=== PATIENT | female | born 1995 | race Caucasian/White ===

== ENCOUNTER 2017-08-18 23:05 | Emergency (ER) | END 2017-08-19 02:18 | disposition home or self-care (01) ==

== ENCOUNTER 2018-07-26 19:32 | Inpatient (IN) | payer MEDICAID ==
[~2018-07-26] VITALS: Ht 160 cm; Wt 69.4 kg
[~2018-07-26 19:32] MED LIST: BENZ30CR2 TP; NITR-58 PO
[2018-07-26 20:20] VITALS: BP 108/62; PULSE 56; RESP 20
[2018-07-26] MEDS ORDERED: PREN1TAB13 PO (20:38)
[2018-07-26 20:59] VITALS: Ht 160 cm; Wt 69.4 kg
[2018-07-26] MEDS ORDERED: AMPICILLIN 2 GM/NS (PMX) 100 ML ONE (21:56)
[2018-07-26] MEDS ORDERED: IBUPROFEN 600 MG TAB PO PRN (22:00)
[2018-07-26] MEDS ORDERED: OXYTOCIN 30 UNITS/LR 500 ML IV SCH ×2 (22:00)
[2018-07-26] MEDS ORDERED: AMPICILLIN 2 GM/NS (PMX) 100 ML IV ONE (22:00)
[2018-07-26] MEDS ORDERED: LIDOCAINE 1% (MPF) 30 ML INJ INJ PRN (22:00)
[2018-07-26] MEDS ORDERED: BUTORPHANOL 2 MG INJ IV PRN (22:00)
[2018-07-26] MEDS ORDERED: MISOPROSTOL 200 MCG TAB PR PRN (22:00)
[2018-07-26] MEDS ORDERED: CARBOPROST 250 MCG INJ IM PRN (22:00)
[2018-07-26] MEDS ORDERED: BUTORPHANOL 1 MG INJ IV PRN (22:00)
[2018-07-26] MEDS ORDERED: OXYTOCIN 30 UNITS/LR 500 ML IV PRN (22:00)
[2018-07-26] MEDS ORDERED: METHYLERGONOVINE 0.2 MG INJ IM PRN (22:00)
[2018-07-26] MEDS: LACTATED RINGER'S 1,000 ML IV SCH (22:26)
--- NOTE | 2018-07-26 23:30 | TRIAGE ---
OB Triage Datetime Report Generated by CPN: 07/26/2018 23:30 Datetime: 07/26/2018 23:00 Stage of : OB Triage Labor Evaluation Frequency: 2-4 Monitor Mode: External Duration (sec)2399: 50-100 Pattern: Normal: <= 5 Contractions in 10 Minutes Resting Tone [place]: Relaxed Heart Rate FHR Baseline Rate: 135 Monitor Mode: External US Variability: Moderate 6-25 bpm Accelerations: 15X15 Decelerations: None Category: Category I Datetime: 07/26/2018 22:19 Monitor Mode: External Monitor Mode: External US Datetime: 07/26/2018 22:00 Stage of : OB Triage Labor Evaluation Frequency: 2-4 Monitor Mode: External Duration (sec)2399: 50-100 Pattern: Normal: <= 5 Contractions in 10 Minutes Resting Tone [place]: Relaxed Heart Rate FHR Baseline Rate: 130 Monitor Mode: External US Variability: Moderate 6-25 bpm Accelerations: 15X15 Decelerations: None Category: Category I Datetime: 07/26/2018 21:43 Membrane Status: Intact Datetime: 07/26/2018 21:36 Stage of : OB Triage Vaginal Exam Dilatation (cms): 2.0 Effacement (%): 80 Station: 0 Exam By: Dr. Benedict Datetime: 07/26/2018 21:00 Stage of : OB Triage Labor Evaluation Frequency: 2-5 Monitor Mode: External Duration (sec)2399: 50-100 Pattern: Normal: <= 5 Contractions in 10 Minutes Resting Tone [place]: Relaxed Heart Rate FHR Baseline Rate: 130 Monitor Mode: External US Variability: Moderate 6-25 bpm Accelerations: 15X15 Decelerations: None Category: Category I Datetime: 07/26/2018 20:42 Stage of : OB Triage Datetime: 07/26/2018 20:41 EGA: 35.4 Datetime: 07/26/2018 20:15 Temperature Route: Oral Datetime: 07/26/2018 20:12 Monitor Mode: External Monitor Mode: External US Datetime: 07/26/2018 19:25 Stage of : OB Triage Time of Arrival: 07/26/2018 19:25 Arrived By: Wheelchair Arrived From: Home Chief Complaint: Back pain started 0900 Movement: Present Contractions: Regular Time Contractions Began: 07/26/2018 09:00 Contractions: 2-5 Rupture of Membranes: Denies Vaginal Bleeding: None Vaginal Discharge: Denies Recent Sexual Intercouse: Denies Abdominal Trauma: Not Applicable Patient Complaints: Contractions; Back Pain Time Provider Notified: 07/26/2018 20:42 Provider Notified: Dr. Benedict Initial Plan: EFM, PO Fluid hydration, U/A Maternal Assessment Level of Consciousness: Fully Conscious DTR's/Clonus: DTRs 2+; No Clonus Headache: Denies Blurred Vision: No Respiratory Effort: Unlabored; Regular Rhythm; Equal Expansion Breath Sounds, Left: Clear and Equal Breath Sounds, Right: Clear and Equal Nausea/Vomiting: Denies RUQ Epigastric Pain: Denies Lower Extremities Edema: None Degree: None Upper Extremities Edema: None Degree: None Facial Edema: None Fall Risk Assessment History of Falling: (0) No Secondary Diagnosis: (0) No Ambulatory Aid: (0) Bedrest/Nurse Assist IV Therapy: (0) No Gait: (0) Normal/Bedrest/Immobile Mental Status: (0) Oriented to Own Ability Fall Score: 0 Fall Risk Score Definition: No Risk: No action required
--- NOTE | 2018-07-27 | HP ---
Date/Time of Note Date/Time of Note DATE: 07/26/18 TIME: 23:55 OB - History Hx of Present Free Text/Dictation 07/26/2018 : 2 Para: 1 Spontaneous : 0 Therapeutic : 0 Care: Good Care Other Concerns: 23-year-old with IUP at 35 weeks and 4 days and history of delivery at 32 weeks presented with complaint of back pain and contractions. She was noted to be 2 cm dilated 80% effaced station 0. She also was GBS unknown. With UA consistent for UTI. Due to possibility of labor patient was admitted to labor and delivery for expectant management. records are not available Past Family/Social History * Past Medical, Surgical, Family and Obstetric Histories reviewed from chart. OB Admission Exam Vital Signs Vital Signs Vital Signs Date Temp Pulse Resp B/P (MAP) Pulse Ox O2 O2 Flow FiO2 Time Delivery Rate 07/26/18 98.5 56 20 108/62 Room Air 20:20 (77) Physical Exam HEENT: WNL Lungs: Clear Abdomen: WNL Cervical Dilatation: 2cm Effacement: 75% Station: +1 Membranes: Intact Heart Rate: 130's Accelerations: Accelerations Present Decelerations: No Decelerations Varibility: Moderate Contractions on Admission: < 5 Minutes Apart Intensity: Moderate Last 72 hourBlood Glucose Cat 1 Last 72 hours Lab Results CBC & BMP 07/26/18 22:15 OB Assessment/Plan Reason for admission: active labor Other Assessment: labor GBS unknown UA consistent with UTI, EFW consistent with the patient's date. Plan: Expectant Management Other plan: Ampicillin for GBS prophylaxis and for Possible UTI Urine to be sent for culture and sensitivity Neonatology consultation Consider Dexamethasone 6mg IV Q 6 hours x 48 hours for FLM due to late labor SOMMER HARRISON MD Jul 27, 2018 00:00
[2018-07-27] MEDS: DEXAMETHASONE 4 MG/ML 5 ML INJ IM SCH ×3 (00:46→23:55)
[2018-07-27] MEDS: AMPICILLIN 1 GM/NS (PMX) 50 ML IV SCH ×5 (02:32→21:56)
[2018-07-27] MEDS: LACTATED RINGER'S 1,000 ML IV SCH ×3 (07:02→19:31)
[2018-07-28] MEDS: AMPICILLIN 1 GM/NS (PMX) 50 ML IV SCH ×6 (01:44→18:17)
[2018-07-28] MEDS: LACTATED RINGER'S 1,000 ML IV SCH ×3 (02:39→19:48)
[2018-07-28] MEDS: DEXAMETHASONE 4 MG/ML 5 ML INJ IM SCH (12:10)
[2018-07-29] MEDS: LACTATED RINGER'S 1,000 ML IV SCH (02:43)
--- NOTE | 2018-07-29 11:32 | PN ---
Date/Time of Note Date/Time of Note DATE: 07/29/18 TIME: 11:28 OB Subjective Subjective Subjective Late entry note. Patient seen on 07/28/2018 at 22:00 Patient seen and examined. She states good movement. She denies nausea, vomiting, shortness of breath, chest pain, abdominal pain, headache, visual changes, vaginal bleeding or LOF. OB Objective Objective Objective Vital Signs Date Temp Pulse Resp B/P (MAP) Pulse Ox O2 O2 Flow FiO2 Time Delivery Rate 07/26/18 98.5 56 20 108/62 Room Air 20:20 (77) General: Patient appears well, alert and oriented, NAD, appropriate mood and affect ABD: gravid, soft, non-tender. Back: No CVA tenderness (B/L) LE: Mild edema. No clubbing, cyanosis, edema, thigh or calf tenderness bilaterally FHT: 135 bpm , moderate variability with acceleration, no deceleration-category I Contractions: None SVE: 3/80/-3/ceph/intact membrane. No cervical changes in more than 24 hours OB Assessment/Plan Other plan: 23 year-old G [id number] with single intrauterine at 35 weeks and 5 days with history of delivery at 32 weeks admitted for threatened labor. She received dexamethasone 6 mg every 12 hours for 4 doses. Is currently steroid benefited. She received ampicillin for UTI and GBS prophylaxis. heart rate is category 1. She has no uterine contractions. No cervical changes in the more than 24 hours. Patient will be discharged home tomorrow. labor precautions discussed in detail with patient and her . I strongly recommend avoid sexual activity. Sign and symptom of labor, preeclampsia, kick count discussed in detail with patient and her . Both expressed understanding all of their questions answered. I strongly recommend follow-up with her primary OB in 2 or 3 days. KARLO COLON Jul 29, 2018 11:32
--- NOTE | 2018-07-29 11:34 | DS ---
Date/Time of Note Date/Time of Note DATE: 07/29/18 TIME: 11:32 Obstetrical Discharge Record Final Diagnosis Final Diagnosis: Term delivered Other Final Diagnosis Final diagnosis: 1. Single intrauterine at 35 weeks and 6 days 2. Threatened labor 23 year-old G [id number] with single intrauterine at 35 weeks and 6 days with history of delivery at 32 weeks admitted for threatened labor. She received dexamethasone 6 mg every 12 hours for 4 doses. Is currently steroid benefited. She received ampicillin for UTI and GBS prophylaxis. heart rate is category 1. She has no uterine contractions. No cervical changes in the more than 24 hours. Patient will be discharged home tomorrow. labor precautions discussed in detail with patient and her . I strongly recommend avoid sexual activity. Sign and symptom of labor, preeclampsia, kick count discussed in detail with patient and her . Both expressed understanding all of their questions answered. I strongly recommend follow-up with her primary OB in 2 or 3 days. Condition on Discharge Physical Assessment Voiding: Yes Bowel Movement: Yes Breast: Soft, non-tender Calf Tenderness: No Patient Condition: Stable KARLO COLON Jul 29, 2018 11:33
== END 2018-07-29 08:15 | disposition home or self-care (01) | DRG 832 ==
LOC: L-D 19:32 → OBT 19:32 → L-D 19:41 → OBT 21:35 → L-D 22:26
PROVIDERS: ADMIT Obstetrics & Gynecology; ATTEND Obstetrics & Gynecology
DX: O60.03 Preterm labor without delivery, third trimester (principal); O23.43 Unspecified infection of urinary tract in pregnancy, third trimester; O09.213 Supervision of pregnancy with history of pre-term labor, third trimester; Z3A.35 35 weeks gestation of pregnancy
CPT/HCPCS: 36415; 76815; 81001; 85025; 85610; 85730; 86592; 86850; 86900; 86901; 87081; 87086; 87340; G0463; J0290; J0595; J1100; J2590; J7120

== ENCOUNTER 2018-08-11 20:48 | Inpatient (IN) | payer MEDICAID ==
[~2018-08-11] VITALS: Ht 160 cm; Wt 68.7 kg
[~2018-08-11 20:48] MED LIST changes: -BENZ30CR2 TP; -NITR-58 PO; +PREN1TAB13 PO
[2018-08-11 20:58] VITALS: Ht 160 cm; Wt 68.7 kg
[2018-08-11] MEDS ORDERED: LACTATED RINGER'S 1,000 ML IV SCH (21:23)
[2018-08-11] MEDS ORDERED: IBUPROFEN 600 MG TAB PO PRN (21:30)
[2018-08-11] MEDS ORDERED: METHYLERGONOVINE 0.2 MG INJ IM PRN (21:30)
[2018-08-11] MEDS ORDERED: OXYTOCIN 30 UNITS/LR 500 ML IV SCH ×2 (21:30)
[2018-08-11] MEDS ORDERED: OXYTOCIN 30 UNITS/LR 500 ML IV PRN (21:30)
[2018-08-11] MEDS ORDERED: OXYCODONE/ACETAMINOPHEN (5/325) TAB PO PRN (21:30)
[2018-08-11] MEDS ORDERED: CARBOPROST 250 MCG INJ IM PRN (21:30)
[2018-08-11] MEDS ORDERED: LIDOCAINE 1% (MPF) 30 ML INJ INJ PRN (21:30)
[2018-08-11] MEDS ORDERED: MISOPROSTOL 200 MCG TAB PR PRN (21:30)
[2018-08-11] MEDS ORDERED: BUTORPHANOL 2 MG INJ IV PRN (21:30)
[2018-08-11 23:20] VITALS: BP 130/80; PULSE 63; RESP 18
--- NOTE | 2018-08-11 23:28 | TRIAGE ---
OB Triage Datetime Report Generated by CPN: 08/11/2018 23:27 Datetime: 08/11/2018 22:00 Time of Arrival: 08/11/2018 21:22 EGA: 37.3 Arrived By: Transfer Arrived From: TRIAGE Datetime: 08/11/2018 21:50 Stage of : Recovery Pain Assessment Pain Scale: 2 Pain Presence: Intermittent Pain Type: Burning; Cramping; Ache Pain Location: Abdomen; Perineum Pain Relief Measures: Comfort Measures Datetime: 08/11/2018 21:36 Stage of : Recovery Temperature Route: Oral Pain Assessment Pain Scale: 4 Pain Presence: Intermittent Pain Type: Burning; Cramping; Ache Pain Location: Abdomen; Perineum Pain Relief Measures: Pain Medication Given; Comfort Measures Pain Assessment Comments: LIDOCAINE INJECTED INTO PERIENUM BY PRIOR TO LACERATION REPAI R. Datetime: 08/11/2018 21:23 Assessment Type: Admission Assessment Maternal Assessment Level of Consciousness: Fully Conscious DTR's/Clonus: DTRs 2+; No Clonus Headache: Denies Blurred Vision: No Respiratory Effort: Unlabored; Regular Rhythm; Equal Expansion Breath Sounds, Left: Clear and Equal Breath Sounds, Right: Clear and Equal Nausea/Vomiting: Denies RUQ Epigastric Pain: Denies Lower Extremities Edema: None Degree: None Upper Extremities Edema: None Degree: None Facial Edema: None Temperature Route: Oral Fall Risk Assessment History of Falling: (0) No Secondary Diagnosis: (0) No Ambulatory Aid: (0) Bedrest/Nurse Assist IV Therapy: (0) No Gait: (0) Normal/Bedrest/Immobile Mental Status: (0) Oriented to Own Ability Fall Score: 0 Fall Risk Score Definition: No Risk: No action required Datetime: 08/11/2018 21:22 Stage of : Labor Monitor Mode: External Monitor Mode: External US Comments: MONITORS APPLIED, FHT AUDIBLE AT 145BPM Datetime: 08/11/2018 21:16 Vaginal Exam Dilatation (cms): 10.0 Effacement (%): 100 Station: -1 Exam By: Lele ROACH RN Vaginal Bleeding: Normal Show Cervix, Consistency: Soft Cervix, Position: Anterior Datetime: 08/11/2018 20:37 Time of Arrival: 08/11/2018 20:37 EGA: 37.3 Arrived By: Wheelchair Arrived From: Home Chief Complaint: Low abdominal pain since 1899 Spotting. Movement: Present Contractions: Regular Time Contractions Began: 08/11/2018 19:00 Rupture of Membranes: Denies Vaginal Bleeding: Normal Show Vaginal Discharge: Denies Recent Sexual Intercouse: Denies Abdominal Trauma: Not Applicable Patient Complaints: Cramping; Other Time Provider Notified: 08/11/2018 21:20 Provider Notified: Dr Barkley Initial Plan: EFM, SVE Datetime: 07/29/2018 06:59 Labor Evaluation Frequency: NONE Monitor Mode: External Resting Tone [place]: Relaxed Heart Rate FHR Baseline Rate: 125 Monitor Mode: External US Variability: Moderate 6-25 bpm Accelerations: 15X15 Decelerations: None Pain Assessment Pain Scale: 0 Pain Presence: None/Denies Pain Type: N/A Pain Goal: 3 Datetime: 07/29/2018 06:18 Stage of : Labor Temperature Route: Oral Datetime: 07/29/2018 06:00 Labor Evaluation Frequency: NONE Monitor Mode: External Resting Tone [place]: Relaxed Heart Rate FHR Baseline Rate: 120 Monitor Mode: External US Variability: Moderate 6-25 bpm Accelerations: 15X15 Decelerations: None Pain Assessment Pain Scale: 0 Pain Presence: None/Denies Pain Type: N/A Pain Goal: 3 Datetime: 07/29/2018 05:00 Labor Evaluation Frequency: X2 IN ONE HOUR Monitor Mode: External Duration (sec)2399: 40-50 Quality: Mild Resting Tone [place]: Relaxed Heart Rate FHR Baseline Rate: 125 Monitor Mode: External US Variability: Moderate 6-25 bpm Accelerations: 15X15 Decelerations: None Pain Assessment Pain Scale: 0 Pain Presence: None/Denies Pain Type: N/A Pain Goal: 3 Datetime: 07/29/2018 04:00 Labor Evaluation Frequency: OCCASIONAL Monitor Mode: External Duration (sec)2399: 40-50 Quality: Mild Resting Tone [place]: Relaxed Heart Rate FHR Baseline Rate: 125 Monitor Mode: External US Variability: Moderate 6-25 bpm Accelerations: 15X15 Decelerations: None Pain Assessment Pain Scale: 0 Pain Presence: None/Denies Pain Type: N/A Pain Goal: 3 Datetime: 07/29/2018 03:00 Labor Evaluation Frequency: OCCASIONAL Monitor Mode: External Duration (sec)2399: 40-50 Quality: Mild Resting Tone [place]: Relaxed Heart Rate FHR Baseline Rate: 125 Monitor Mode: External US Variability: Moderate 6-25 bpm Accelerations: 15X15 Decelerations: None Pain Assessment Pain Scale: 0 Pain Presence: None/Denies Pain Type: N/A Pain Goal: 3 Datetime: 07/29/2018 02:42 Temperature Route: Oral Datetime: 07/29/2018 02:00 Labor Evaluation Frequency: OCCASIONAL Monitor Mode: External Duration (sec)2399: 40-50 Quality: Mild Resting Tone [place]: Relaxed Heart Rate FHR Baseline Rate: 125 Monitor Mode: External US Variability: Moderate 6-25 bpm Accelerations: 15X15 Decelerations: None Datetime: 07/29/2018 01:00 Labor Evaluation Frequency: OCCASIONAL Monitor Mode: External Duration (sec)2399: 40-50 Quality: Mild Resting Tone [place]: Relaxed Heart Rate FHR Baseline Rate: 125 Monitor Mode: External US Variability: Moderate 6-25 bpm Accelerations: 15X15 Decelerations: None Datetime: 07/29/2018 00:00 Labor Evaluation Frequency: OCCASIONAL Monitor Mode: External Duration (sec)2399: 40-60 Quality: Mild Resting Tone [place]: Relaxed Contraction Comments: PT DENIES FEELING [facility]'S JUST STATES CONSTANT BACK PAIN Heart Rate FHR Baseline Rate: 125 Monitor Mode: External US Variability: Moderate 6-25 bpm Accelerations: 15X15 Decelerations: None Datetime: 07/28/2018 23:04 Pain Assessment Pain Scale: 9 Pain Presence: Constant Pain Type: Ache Pain Location: Back Pain Goal: 3 Datetime: 07/28/2018 23:00 Labor Evaluation Frequency: X2 IN ONE HOUR Monitor Mode: External Duration (sec)2399: 50-70 Quality: Mild Resting Tone [place]: Relaxed Heart Rate FHR Baseline Rate: 135 Monitor Mode: External US Variability: Moderate 6-25 bpm Accelerations: 15X15 Decelerations: None Datetime: 07/28/2018 22:00 Labor Evaluation Frequency: X1 IN ONE HOUR Monitor Mode: External Duration (sec)2399: 60 Quality: Mild Resting Tone [place]: Relaxed Heart Rate FHR Baseline Rate: 135 Monitor Mode: External US Variability: Moderate 6-25 bpm Accelerations: 15X15 Decelerations: None Datetime: 07/28/2018 21:20 Vaginal Exam Dilatation (cms): 3.0 Effacement (%): 70 Station: -3 Exam By: DR HADADIAN Membrane Status: Intact Presentation 'A': Cephalic Datetime: 07/28/2018 20:59 Labor Evaluation Frequency: X1 IN ONE HOUR Monitor Mode: External Duration (sec)2399: 120 Quality: Mild Resting Tone [place]: Relaxed Heart Rate FHR Baseline Rate: 130 Monitor Mode: External US Variability: Moderate 6-25 bpm Accelerations: 15X15 Decelerations: None Category: Category I Datetime: 07/28/2018 19:59 Labor Evaluation Frequency: X1 IN ONE HOUR Monitor Mode: External Duration (sec)2399: 60 Quality: Mild Resting Tone [place]: Relaxed Heart Rate FHR Baseline Rate: 130 Monitor Mode: External US Variability: Moderate 6-25 bpm Accelerations: 15X15 Decelerations: None Category: Category I Datetime: 07/28/2018 19:45 Stage of : Labor Assessment Type: Ongoing Assessment Maternal Assessment Level of Consciousness: Fully Conscious DTR's/Clonus: DTRs 2+; No Clonus Headache: Denies Blurred Vision: No Respiratory Effort: Unlabored; Regular Rhythm; Equal Expansion Breath Sounds, Left: Clear and Equal Breath Sounds, Right: Clear and Equal Nausea/Vomiting: Denies RUQ Epigastric Pain: Denies Lower Extremities Edema: None Degree: None Upper Extremities Edema: None Degree: None Facial Edema: None Temperature Route: Oral Fall Risk Assessment History of Falling: (0) No Secondary Diagnosis: (0) No Ambulatory Aid: (0) Bedrest/Nurse Assist IV Therapy: (20) Yes Gait: (0) Normal/Bedrest/Immobile Mental Status: (0) Oriented to Own Ability Fall Score: 20 Fall Risk Score Definition: No Risk: No action required Datetime: 07/28/2018 19:13 Assessment Type: Ongoing Assessment Datetime: 07/28/2018 19:09 Labor Evaluation Frequency: IRREGULAR Monitor Mode: External Duration (sec)2399: 60-80 Quality: Mild Pattern: Normal: <= 5 Contractions in 10 Minutes Resting Tone [place]: Relaxed Heart Rate FHR Baseline Rate: 130 Monitor Mode: External US FHR Baseline Changes: No Baseline Change Variability: Moderate 6-25 bpm Accelerations: 15X15 Decelerations: None Category: Category I Pain Assessment Pain Scale: 5 Pain Presence: Intermittent Pain Type: Cramping Pain Location: Abdomen; Back Pain Relief Measures: Comfort Measures Datetime: 07/28/2018 18:22 Pain Assessment Pain Scale: 3 Pain Presence: Intermittent Pain Type: Contraction Pain Location: Abdomen; Back Pain Relief Measures: Comfort Measures Vaginal Exam Dilatation (cms): 3.0 Effacement (%): 70 Station: -2 Exam By: PS Vaginal Bleeding: None Cervix, Consistency: Soft Cervix, Position: Anterior Presentation 'A': Cephalic Lie 'A': Longitudinal Datetime: 07/28/2018 17:47 Labor Evaluation Frequency: OCCASIONAL Monitor Mode: Palpation Duration (sec)2399: 20-60 Quality: Mild Pattern: Normal: <= 5 Contractions in 10 Minutes Resting Tone [place]: Relaxed Heart Rate FHR Baseline Rate: 130 Monitor Mode: External US FHR Baseline Changes: No Baseline Change Variability: Moderate 6-25 bpm Accelerations: 15X15 Decelerations: None Datetime: 07/28/2018 16:30 Labor Evaluation Frequency: none Monitor Mode: External Resting Tone [place]: Relaxed Heart Rate FHR Baseline Rate: 120 Monitor Mode: External US Variability: Moderate 6-25 bpm Accelerations: 15X15 Decelerations: None Category: Category I Datetime: 07/28/2018 15:30 Stage of : Labor Labor Evaluation Frequency: irreg Monitor Mode: External Duration (sec)2399: 50-60 Quality: Mild Pattern: Normal: <= 5 Contractions in 10 Minutes Resting Tone [place]: Relaxed Heart Rate FHR Baseline Rate: 120 Monitor Mode: External US FHR Baseline Changes: No Baseline Change Variability: Moderate 6-25 bpm Accelerations: 15X15 Decelerations: None Category: Category I Comments: period of loss of contact Pain Assessment Pain Scale: 0 Pain Presence: None/Denies Datetime: 07/28/2018 14:30 Stage of : Labor Labor Evaluation Frequency: irreg Monitor Mode: External Quality: Mild Pattern: Normal: <= 5 Contractions in 10 Minutes Resting Tone [place]: Relaxed Heart Rate FHR Baseline Rate: 125 Monitor Mode: External US FHR Baseline Changes: No Baseline Change Variability: Moderate 6-25 bpm Accelerations: 15X15 Decelerations: None Category: Category I Pain Assessment Pain Scale: 0 Pain Presence: None/Denies Pain Relief Measures: Comfort Measures Datetime: 07/28/2018 13:36 Monitor Mode: External Resting Tone [place]: Relaxed Heart Rate FHR Baseline Rate: 125 Monitor Mode: External US FHR Baseline Changes: No Baseline Change Variability: Moderate 6-25 bpm Accelerations: 15X15 Decelerations: None Category: Category I Pain Assessment Pain Scale: 0 Pain Presence: None/Denies Pain Relief Measures: Comfort Measures Datetime: 07/28/2018 12:59 Heart Rate FHR Baseline Rate: 120 Monitor Mode: External US FHR Baseline Changes: No Baseline Change Variability: Moderate 6-25 bpm Accelerations: 15X15 Decelerations: None Category: Category I Pain Assessment Pain Scale: 0 Pain Presence: None/Denies Datetime: 07/28/2018 12:29 Labor Evaluation Frequency: 0 Monitor Mode: External Resting Tone [place]: Relaxed Heart Rate FHR Baseline Rate: 120 Monitor Mode: External US FHR Baseline Changes: No Baseline Change Variability: Moderate 6-25 bpm Accelerations: 15X15 Decelerations: None Category: Category I Membrane Status: Intact Datetime: 07/28/2018 11:57 Labor Evaluation Frequency: irregular Monitor Mode: External Duration (sec)2399: 70 Quality: Mild Pattern: Normal: <= 5 Contractions in 10 Minutes Resting Tone [place]: Relaxed Heart Rate FHR Baseline Rate: 125 Monitor Mode: External US FHR Baseline Changes: No Baseline Change Variability: Moderate 6-25 bpm Accelerations: 15X15 Decelerations: None Category: Category I Pain Assessment Pain Scale: 0 Pain Presence: None/Denies Pain Relief Measures: Comfort Measures Datetime: 07/28/2018 11:32 Heart Rate FHR Baseline Rate: 125 Monitor Mode: External US FHR Baseline Changes: No Baseline Change Variability: Moderate 6-25 bpm Accelerations: 15X15 Decelerations: None Category: Category I Datetime: 07/28/2018 11:31 Labor Evaluation Frequency: 0 Monitor Mode: External Resting Tone [place]: Relaxed Pain Assessment Pain Scale: 0 Pain Presence: None/Denies Datetime: 07/28/2018 10:00 Labor Evaluation Frequency: IRREGULAR Monitor Mode: External Duration (sec)2399: 60 Quality: Mild Pattern: Normal: <= 5 Contractions in 10 Minutes Resting Tone [place]: Relaxed Heart Rate FHR Baseline Rate: 120 Monitor Mode: External US FHR Baseline Changes: No Baseline Change Variability: Moderate 6-25 bpm Accelerations: 15X15 Decelerations: None Category: Category I Pain Assessment Pain Scale: 2 Pain Presence: Intermittent Pain Type: Cramping Pain Location: Abdomen Pain Relief Measures: Comfort Measures Datetime: 07/28/2018 09:00 Labor Evaluation Frequency: 4-6 Monitor Mode: External Duration (sec)2399: 60 Quality: Mild Pattern: Normal: <= 5 Contractions in 10 Minutes Resting Tone [place]: Relaxed Heart Rate FHR Baseline Rate: 120 Monitor Mode: External US FHR Baseline Changes: No Baseline Change Variability: Moderate 6-25 bpm Decelerations: None Category: Category I Pain Assessment Pain Scale: 0 Pain Presence: None/Denies Pain Relief Measures: Comfort Measures Datetime: 07/28/2018 08:27 Labor Evaluation Frequency: 7 Monitor Mode: External Duration (sec)2399: 60-80 Quality: Mild Pattern: Normal: <= 5 Contractions in 10 Minutes Resting Tone [place]: Relaxed Heart Rate FHR Baseline Rate: 120 Monitor Mode: External US FHR Baseline Changes: No Baseline Change Variability: Minimal - Undetectable to <=5 bpm Category: Category II Pain Assessment Pain Scale: 0 Pain Presence: None/Denies Pain Location: Abdomen; Back Pain Relief Measures: Comfort Measures Datetime: 07/28/2018 08:11 Assessment Type: Ongoing Assessment Maternal Assessment Level of Consciousness: Fully Conscious DTR's/Clonus: DTRs 2+; No Clonus Headache: Denies Blurred Vision: No Respiratory Effort: Unlabored; Regular Rhythm; Equal Expansion Breath Sounds, Left: Clear and Equal Breath Sounds, Right: Clear and Equal Nausea/Vomiting: Denies RUQ Epigastric Pain: Denies Lower Extremities Edema: None Degree: None Upper Extremities Edema: None Degree: None Facial Edema: None Fall Risk Assessment History of Falling: (0) No Secondary Diagnosis: (0) No Ambulatory Aid: (0) Bedrest/Nurse Assist IV Therapy: (20) Yes Gait: (0) Normal/Bedrest/Immobile Mental Status: (0) Oriented to Own Ability Fall Score: 20 Fall Risk Score Definition: No Risk: No action required Datetime: 07/28/2018 08:00 Labor Evaluation Frequency: 4-7 Monitor Mode: External Duration (sec)2399: 50-120 Quality: Mild Pattern: Normal: <= 5 Contractions in 10 Minutes Resting Tone [place]: Relaxed Heart Rate FHR Baseline Rate: 120 Monitor Mode: External US FHR Baseline Changes: No Baseline Change Variability: Moderate 6-25 bpm Accelerations: 15X15 Decelerations: None Category: Category I Datetime: 07/28/2018 07:30 Assessment Type: Ongoing Assessment Maternal Assessment Level of Consciousness: Fully Conscious DTR's/Clonus: DTRs 2+; No Clonus Headache: Denies Blurred Vision: No Respiratory Effort: Unlabored; Regular Rhythm; Equal Expansion Breath Sounds, Left: Clear and Equal Breath Sounds, Right: Clear and Equal Nausea/Vomiting: Denies RUQ Epigastric Pain: Denies Lower Extremities Edema: None Degree: None Upper Extremities Edema: None Degree: None Facial Edema: None Fall Risk Assessment History of Falling: (0) No Secondary Diagnosis: (0) No Ambulatory Aid: (0) Bedrest/Nurse Assist IV Therapy: (20) Yes Gait: (0) Normal/Bedrest/Immobile Mental Status: (0) Oriented to Own Ability Fall Score: 20 Fall Risk Score Definition: No Risk: No action required Datetime: 07/28/2018 06:56 Assessment Type: Ongoing Assessment Datetime: 07/28/2018 06:47 Labor Evaluation Frequency: 5-7 Monitor Mode: External Duration (sec)2399: 70-110 Quality: Moderate Pattern: Normal: <= 5 Contractions in 10 Minutes Resting Tone [place]: Relaxed Heart Rate FHR Baseline Rate: 115 Monitor Mode: External US Variability: Moderate 6-25 bpm Accelerations: 15X15 Decelerations: None Datetime: 07/28/2018 06:26 Labor Evaluation Frequency: 7-8 Monitor Mode: External Duration (sec)2399: 100-120 Quality: Moderate Pattern: Normal: <= 5 Contractions in 10 Minutes Resting Tone [place]: Relaxed Heart Rate FHR Baseline Rate: 120 Monitor Mode: External US Variability: Moderate 6-25 bpm Accelerations: 15X15 Datetime: 07/28/2018 06:00 Labor Evaluation Frequency: 5-7 Monitor Mode: External Duration (sec)2399: 50-80 Quality: Moderate Pattern: Normal: <= 5 Contractions in 10 Minutes Resting Tone [place]: Relaxed Monitor Mode: External US Variability: Minimal - Undetectable to <=5 bpm Accelerations: 15X15 Decelerations: None Datetime: 07/28/2018 05:51 Vaginal Exam Dilatation (cms): 4.0 Effacement (%): 80 Station: -2 Datetime: 07/28/2018 05:30 Labor Evaluation Frequency: 4-6 Monitor Mode: External Duration (sec)2399: 50-100 Quality: Moderate Pattern: Normal: <= 5 Contractions in 10 Minutes Resting Tone [place]: Relaxed Heart Rate FHR Baseline Rate: 120 Monitor Mode: External US Variability: Moderate 6-25 bpm Accelerations: 15X15 Decelerations: None Category: Category I Datetime: 07/28/2018 05:00 Labor Evaluation Frequency: 7-10 Monitor Mode: External Duration (sec)2399: 80-90 Quality: Moderate Pattern: Normal: <= 5 Contractions in 10 Minutes Resting Tone [place]: Relaxed Heart Rate FHR Baseline Rate: 130 Monitor Mode: External US Variability: Moderate 6-25 bpm Accelerations: 15X15 Decelerations: None Category: Category I Datetime: 07/28/2018 04:31 Temperature Route: Oral Labor Evaluation Frequency: 6-8 Monitor Mode: External Duration (sec)2399: 90-100 Quality: Moderate Pattern: Normal: <= 5 Contractions in 10 Minutes Resting Tone [place]: Relaxed Heart Rate FHR Baseline Rate: 135 Monitor Mode: External US Variability: Moderate 6-25 bpm Accelerations: 15X15 Decelerations: None Category: Category I Datetime: 07/28/2018 04:00 Labor Evaluation Frequency: 6-7 Monitor Mode: External Duration (sec)2399: 70-80 Quality: Moderate Pattern: Normal: <= 5 Contractions in 10 Minutes Resting Tone [place]: Relaxed Heart Rate FHR Baseline Rate: 130 Monitor Mode: External US Variability: Moderate 6-25 bpm Accelerations: 15X15 Decelerations: None Category: Category I Datetime: 07/28/2018 03:30 Labor Evaluation Frequency: 7-8 Monitor Mode: External Duration (sec)2399: 60-80 Quality: Moderate Pattern: Normal: <= 5 Contractions in 10 Minutes Resting Tone [place]: Relaxed Heart Rate FHR Baseline Rate: 135 Monitor Mode: External US Variability: Moderate 6-25 bpm Accelerations: 15X15 Decelerations: None Category: Category I Datetime: 07/28/2018 03:00 Labor Evaluation Frequency: 6-8 Monitor Mode: External Duration (sec)2399: 70-90 Quality: Moderate Pattern: Normal: <= 5 Contractions in 10 Minutes Resting Tone [place]: Relaxed Heart Rate FHR Baseline Rate: 130 Monitor Mode: External US Variability: Moderate 6-25 bpm Accelerations: 15X15 Decelerations: None Category: Category I Datetime: 07/28/2018 02:30 Labor Evaluation Frequency: 5-7 Monitor Mode: External Duration (sec)2399: 80-90 Quality: Moderate Pattern: Normal: <= 5 Contractions in 10 Minutes Resting Tone [place]: Relaxed Heart Rate FHR Baseline Rate: 135 Monitor Mode: External US Variability: Moderate 6-25 bpm Accelerations: 15X15 Decelerations: None Category: Category I Datetime: 07/28/2018 02:00 Labor Evaluation Frequency: 5-7 Monitor Mode: External Duration (sec)2399: 60-70 Quality: Moderate Pattern: Normal: <= 5 Contractions in 10 Minutes Resting Tone [place]: Relaxed Heart Rate FHR Baseline Rate: 135 Monitor Mode: External US Variability: Moderate 6-25 bpm Accelerations: 15X15 Decelerations: None Category: Category I Datetime: 07/28/2018 01:30 Labor Evaluation Frequency: 6-7 Monitor Mode: External Duration (sec)2399: 80-100 Quality: Moderate Pattern: Normal: <= 5 Contractions in 10 Minutes Resting Tone [place]: Relaxed Heart Rate FHR Baseline Rate: 125 Monitor Mode: External US Variability: Moderate 6-25 bpm Accelerations: 15X15 Decelerations: None Category: Category I Datetime: 07/28/2018 01:08 Stage of : Labor Labor Evaluation Frequency: x3 Monitor Mode: External Duration (sec)2399: 50-100 Quality: Mild Pattern: Normal: <= 5 Contractions in 10 Minutes Resting Tone [place]: Relaxed Heart Rate FHR Baseline Rate: 135 Monitor Mode: External US Variability: Moderate 6-25 bpm Accelerations: 15X15 Decelerations: None Category: Category I Datetime: 07/28/2018 00:35 Temperature Route: Oral Pain Assessment Pain Scale: 7 Pain Presence: Intermittent Pain Type: Contraction Pain Location: Abdomen Pain Goal: 0 Pain Relief Measures: Comfort Measures Datetime: 07/28/2018 00:30 Labor Evaluation Frequency: x2 Monitor Mode: External Duration (sec)2399: 60-80 Quality: Moderate Pattern: Normal: <= 5 Contractions in 10 Minutes Resting Tone [place]: Relaxed Heart Rate FHR Baseline Rate: 135 Monitor Mode: External US Variability: Moderate 6-25 bpm Accelerations: 15X15 Decelerations: None Category: Category I Datetime: 07/28/2018 00:00 Labor Evaluation Frequency: 4-5 Monitor Mode: External Duration (sec)2399: 80-110 Quality: Moderate Pattern: Normal: <= 5 Contractions in 10 Minutes Resting Tone [place]: Relaxed Heart Rate FHR Baseline Rate: 130 Monitor Mode: External US Variability: Moderate 6-25 bpm Accelerations: 15X15 Decelerations: None Category: Category I Datetime: 07/27/2018 23:30 Labor Evaluation Frequency: x2 Monitor Mode: External Duration (sec)2399: 70-90 Quality: Moderate Pattern: Normal: <= 5 Contractions in 10 Minutes Resting Tone [place]: Relaxed Heart Rate FHR Baseline Rate: 135 Monitor Mode: External US Variability: Moderate 6-25 bpm Accelerations: 15X15 Decelerations: None Category: Category I Datetime: 07/27/2018 23:01 Pain Assessment Pain Scale: 7 Pain Presence: Intermittent Pain Type: Contraction Pain Location: Abdomen Pain Goal: 0 Pain Relief Measures: Comfort Measures Pain Assessment Comments: OFFERED PAIN MEDICATIONS AND EPIDURAL TO PT. PT REFUSED BOTH. Datetime: 07/27/2018 23:00 Labor Evaluation Frequency: 5-6 Monitor Mode: External Duration (sec)2399: 50-60 Quality: Moderate Pattern: Normal: <= 5 Contractions in 10 Minutes Resting Tone [place]: Relaxed Heart Rate FHR Baseline Rate: 125 Monitor Mode: External US Variability: Moderate 6-25 bpm Accelerations: 15X15 Decelerations: None Category: Category I Datetime: 07/27/2018 22:30 Labor Evaluation Frequency: 5-6 Monitor Mode: External Duration (sec)2399: 40-60 Quality: Moderate Pattern: Normal: <= 5 Contractions in 10 Minutes Resting Tone [place]: Relaxed Heart Rate FHR Baseline Rate: 130 Monitor Mode: External US Variability: Moderate 6-25 bpm Accelerations: 15X15 Decelerations: None Category: Category I Datetime: 07/27/2018 22:00 Labor Evaluation Frequency: 5-7 Monitor Mode: External Duration (sec)2399: 40-60 Quality: Moderate Pattern: Normal: <= 5 Contractions in 10 Minutes Resting Tone [place]: Relaxed Monitor Mode: External US Variability: Moderate 6-25 bpm Accelerations: 15X15 Decelerations: None Category: Category I Datetime: 07/27/2018 21:30 Labor Evaluation Frequency: 5-7 Monitor Mode: External Duration (sec)2399: 50-70 Quality: Moderate Pattern: Normal: <= 5 Contractions in 10 Minutes Resting Tone [place]: Relaxed Heart Rate FHR Baseline Rate: 125 Monitor Mode: External US Variability: Moderate 6-25 bpm Accelerations: 15X15 Decelerations: None Category: Category I Datetime: 07/27/2018 21:00 Labor Evaluation Frequency: 6-7 Monitor Mode: External Duration (sec)2399: 60-90 Quality: Moderate Pattern: Normal: <= 5 Contractions in 10 Minutes Resting Tone [place]: Relaxed Interventions: IV Bolus Heart Rate FHR Baseline Rate: 120 Monitor Mode: External US Variability: Moderate 6-25 bpm Accelerations: 15X15 Decelerations: None Datetime: 07/27/2018 20:55 Interventions: IV Bolus Datetime: 07/27/2018 20:30 Labor Evaluation Frequency: 5-7 Monitor Mode: External Duration (sec)2399: 70-90 Quality: Moderate Pattern: Normal: <= 5 Contractions in 10 Minutes Resting Tone [place]: Relaxed Heart Rate FHR Baseline Rate: 125 Monitor Mode: External US Variability: Moderate 6-25 bpm Accelerations: 15X15 Decelerations: None Category: Category I Datetime: 07/27/2018 20:00 Labor Evaluation Frequency: 5-6 Monitor Mode: External Duration (sec)2399: 80-100 Quality: Moderate Pattern: Normal: <= 5 Contractions in 10 Minutes Resting Tone [place]: Relaxed Heart Rate FHR Baseline Rate: 145 Monitor Mode: External US Variability: Moderate 6-25 bpm Accelerations: 15X15 Decelerations: Early Category: Category I Datetime: 07/27/2018 19:26 Temperature Route: Oral Labor Evaluation Frequency: 7-8 Monitor Mode: External Duration (sec)2399: 60-110 Quality: Moderate Pattern: Normal: <= 5 Contractions in 10 Minutes Resting Tone [place]: Relaxed Heart Rate FHR Baseline Rate: 135 Monitor Mode: External US Variability: Moderate 6-25 bpm Accelerations: 15X15 Decelerations: Prolonged (Annotations: PROLONGED DECEL RESOLVED ) Category: Category II Pain Assessment Pain Scale: 0 Pain Presence: None/Denies Pain Type: N/A Pain Goal: 0 Datetime: 07/27/2018 19:24 Maternal Assessment Level of Consciousness: Fully Conscious DTR's/Clonus: DTRs 2+; No Clonus Headache: Denies Blurred Vision: No Respiratory Effort: Unlabored; Regular Rhythm; Equal Expansion Breath Sounds, Left: Clear and Equal Breath Sounds, Right: Clear and Equal Nausea/Vomiting: Denies RUQ Epigastric Pain: Denies Lower Extremities Edema: None Upper Extremities Edema: None Facial Edema: None Fall Risk Assessment History of Falling: (0) No Secondary Diagnosis: (0) No Ambulatory Aid: (0) Bedrest/Nurse Assist IV Therapy: (20) Yes Gait: (0) Normal/Bedrest/Immobile Mental Status: (0) Oriented to Own Ability Fall Score: 20 Fall Risk Score Definition: No Risk: No action required Datetime: 07/27/2018 19:18 Interventions: Side to Side; Oxygen Applied; IV Bolus Datetime: 07/27/2018 19:17 Interventions: Side to Side Datetime: 07/27/2018 18:34 Labor Evaluation Frequency: 5-10 Monitor Mode: External Duration (sec)2399: 70-100 Quality: Mild Pattern: Normal: <= 5 Contractions in 10 Minutes Resting Tone [place]: Relaxed Heart Rate FHR Baseline Rate: 125 Monitor Mode: External US FHR Baseline Changes: No Baseline Change Variability: Moderate 6-25 bpm Accelerations: 15X15 Decelerations: None Category: Category I Pain Assessment Pain Scale: 3 Pain Presence: Intermittent Pain Type: Contraction Pain Location: Abdomen; Back Pain Relief Measures: Comfort Measures Vaginal Exam Dilatation (cms): 4.0 Effacement (%): 80 Station: -2 Exam By: PS Membrane Status: Bulging Vaginal Bleeding: Normal Show Cervix, Consistency: Soft Cervix, Position: Anterior Presentation 'A': Other Lie 'A': Longitudinal Datetime: 07/27/2018 17:50 Labor Evaluation Frequency: IRREGULAR Monitor Mode: External Duration (sec)2399: 20-60 Quality: Mild Pattern: Normal: <= 5 Contractions in 10 Minutes Resting Tone [place]: Relaxed Pain Assessment Pain Scale: 3 Pain Presence: Intermittent Pain Type: Contraction Pain Location: Abdomen; Back Pain Relief Measures: Comfort Measures Datetime: 07/27/2018 16:42 Labor Evaluation Frequency: IRREGULAR Monitor Mode: External Duration (sec)2399: 60 Quality: Mild Pattern: Normal: <= 5 Contractions in 10 Minutes Resting Tone [place]: Relaxed Heart Rate FHR Baseline Rate: 140 Monitor Mode: External US FHR Baseline Changes: No Baseline Change Variability: Moderate 6-25 bpm Accelerations: 15X15 Decelerations: None Category: Category I Datetime: 07/27/2018 16:00 Labor Evaluation Frequency: OCC Monitor Mode: External Quality: Mild Pattern: Normal: <= 5 Contractions in 10 Minutes Resting Tone [place]: Relaxed Heart Rate FHR Baseline Rate: 135 Monitor Mode: External US FHR Baseline Changes: No Baseline Change Variability: Moderate 6-25 bpm Accelerations: 15X15 Decelerations: None Category: Category I Datetime: 07/27/2018 15:00 Labor Evaluation Frequency: OCC Monitor Mode: External Quality: Mild Pattern: Normal: <= 5 Contractions in 10 Minutes Resting Tone [place]: Relaxed Heart Rate FHR Baseline Rate: 130 Monitor Mode: External US FHR Baseline Changes: No Baseline Change Variability: Moderate 6-25 bpm Accelerations: 15X15 Decelerations: None Category: Category I Pain Presence: None/Denies Datetime: 07/27/2018 14:00 Labor Evaluation Frequency: OCC Monitor Mode: External Quality: Mild Pattern: Normal: <= 5 Contractions in 10 Minutes Resting Tone [place]: Relaxed Heart Rate FHR Baseline Rate: 130 Monitor Mode: External US FHR Baseline Changes: No Baseline Change Variability: Moderate 6-25 bpm Accelerations: 15X15 Decelerations: None Category: Category I Pain Presence: None/Denies Datetime: 07/27/2018 13:00 Labor Evaluation Frequency: OCC Monitor Mode: External Quality: Moderate Pattern: Normal: <= 5 Contractions in 10 Minutes Resting Tone [place]: Relaxed Heart Rate FHR Baseline Rate: 125 Monitor Mode: External US FHR Baseline Changes: No Baseline Change Variability: Moderate 6-25 bpm Accelerations: 15X15 Decelerations: None Category: Category I Pain Presence: None/Denies Datetime: 07/27/2018 11:58 Labor Evaluation Frequency: OCC Monitor Mode: External Quality: Mild Pattern: Normal: <= 5 Contractions in 10 Minutes Resting Tone [place]: Relaxed Heart Rate FHR Baseline Rate: 130 Monitor Mode: External US FHR Baseline Changes: No Baseline Change Variability: Moderate 6-25 bpm Accelerations: 15X15 Decelerations: None Category: Category I Pain Assessment Pain Scale: 2 Pain Presence: Intermittent Pain Type: Cramping Pain Location: Abdomen Pain Relief Measures: Comfort Measures Datetime: 07/27/2018 10:58 Labor Evaluation Frequency: OCC Monitor Mode: External Quality: Mild Pattern: Normal: <= 5 Contractions in 10 Minutes Resting Tone [place]: Relaxed Heart Rate FHR Baseline Rate: 130 Monitor Mode: External US FHR Baseline Changes: No Baseline Change Variability: Moderate 6-25 bpm Accelerations: 15X15 Decelerations: None Category: Category I Pain Presence: None/Denies Datetime: 07/27/2018 10:00 Labor Evaluation Frequency: OCCASINAL Monitor Mode: External Duration (sec)2399: 30-60 Quality: Mild Pattern: Normal: <= 5 Contractions in 10 Minutes Resting Tone [place]: Relaxed Heart Rate FHR Baseline Rate: 130 Monitor Mode: External US FHR Baseline Changes: No Baseline Change Variability: Moderate 6-25 bpm Accelerations: Prolonged Decelerations: None Category: Category I Pain Assessment Pain Scale: 6 Pain Presence: Intermittent Pain Type: Contraction Pain Location: Abdomen; Back Pain Relief Measures: Comfort Measures Membrane Status: Intact Datetime: 07/27/2018 09:54 Vaginal Exam Dilatation (cms): 3.0 Effacement (%): 80 Station: -2 Exam By: PS Vaginal Bleeding: Normal Show Cervix, Consistency: Soft Cervix, Position: Anterior Presentation 'A': Cephalic Lie 'A': Longitudinal Datetime: 07/27/2018 09:00 Labor Evaluation Frequency: IRREGULAR Monitor Mode: Palpation Duration (sec)2399: 30-60 Quality: Mild Resting Tone [place]: Relaxed Heart Rate FHR Baseline Rate: 130 Monitor Mode: External US FHR Baseline Changes: No Baseline Change Variability: Minimal - Undetectable to <=5 bpm Category: Category I Pain Assessment Pain Scale: 2 Pain Presence: Intermittent Pain Type: Cramping Pain Location: Abdomen Pain Relief Measures: Comfort Measures Datetime: 07/27/2018 08:17 Labor Evaluation Frequency: 0 Monitor Mode: External Resting Tone [place]: Relaxed Heart Rate FHR Baseline Rate: 130 Monitor Mode: External US FHR Baseline Changes: No Baseline Change Variability: Moderate 6-25 bpm Accelerations: 15X15 Decelerations: None Category: Category I Pain Assessment Pain Scale: 0 Pain Presence: None/Denies Pain Relief Measures: Comfort Measures Datetime: 07/27/2018 07:50 Pain Assessment Pain Scale: 0 Pain Presence: None/Denies Datetime: 07/27/2018 07:30 Assessment Type: Ongoing Assessment Maternal Assessment Level of Consciousness: Fully Conscious DTR's/Clonus: DTRs 2+; No Clonus Headache: Denies Blurred Vision: No Respiratory Effort: Unlabored; Regular Rhythm; Equal Expansion Breath Sounds, Left: Clear and Equal Breath Sounds, Right: Clear and Equal Nausea/Vomiting: Present RUQ Epigastric Pain: Denies Lower Extremities Edema: Bilateral Lower Extremities Degree: 1+ Upper Extremities Edema: None Degree: None Facial Edema: None Fall Risk Assessment History of Falling: (0) No Secondary Diagnosis: (0) No Ambulatory Aid: (0) Bedrest/Nurse Assist IV Therapy: (20) Yes Gait: (0) Normal/Bedrest/Immobile Mental Status: (0) Oriented to Own Ability Fall Score: 20 Fall Risk Score Definition: No Risk: No action required Datetime: 07/27/2018 07:29 Labor Evaluation Frequency: 2-4 Monitor Mode: External Duration (sec)2399: 60 Quality: Mild Pattern: Normal: <= 5 Contractions in 10 Minutes Resting Tone [place]: Relaxed Heart Rate FHR Baseline Rate: 130 Monitor Mode: External US FHR Baseline Changes: No Baseline Change Variability: Moderate 6-25 bpm Accelerations: 15X15 Decelerations: None Category: Category I Pain Assessment Pain Scale: 3 Pain Presence: Intermittent Pain Type: Cramping Pain Location: Abdomen; Back Pain Relief Measures: Comfort Measures Membrane Status: Intact Datetime: 07/27/2018 07:00 Stage of : Labor Labor Evaluation Frequency: 2-5 Monitor Mode: External Duration (sec)2399: 40-70 Quality: Moderate Pattern: Normal: <= 5 Contractions in 10 Minutes Resting Tone [place]: Relaxed Heart Rate FHR Baseline Rate: 130 Monitor Mode: External US FHR Baseline Changes: No Baseline Change Variability: Moderate 6-25 bpm Accelerations: 15X15 Decelerations: None Category: Category I Comments: points of loss of contact Pain Assessment Pain Scale: 4 Pain Presence: Intermittent Pain Type: Contraction Pain Location: Back Pain Goal: 6 Pain Relief Measures: Comfort Measures Datetime: 07/27/2018 06:35 Vaginal Exam Dilatation (cms): 3.5 Effacement (%): 80 Station: -1 Exam By: Joey Estuardokarly, RN Datetime: 07/27/2018 06:00 Stage of : Labor Labor Evaluation Frequency: 2-4 Monitor Mode: External Duration (sec)2399: 40-70 Quality: Moderate Pattern: Normal: <= 5 Contractions in 10 Minutes Resting Tone [place]: Relaxed Heart Rate FHR Baseline Rate: 130 Monitor Mode: External US FHR Baseline Changes: No Baseline Change Variability: Minimal - Undetectable to <=5 bpm (Annotations: minimal with a period of moderate) Accelerations: 15X15 Decelerations: None Category: Category II Comments: points of loss of contact Pain Assessment Pain Scale: 4 Pain Presence: Intermittent Pain Type: Contraction Pain Location: Back Pain Goal: 6 Pain Relief Measures: Comfort Measures Datetime: 07/27/2018 05:00 Stage of : Labor Labor Evaluation Frequency: 2-5 Monitor Mode: External Duration (sec)2399: 40-70 Quality: Moderate Pattern: Normal: <= 5 Contractions in 10 Minutes Resting Tone [place]: Relaxed Heart Rate FHR Baseline Rate: 135 Monitor Mode: External US FHR Baseline Changes: No Baseline Change Variability: Moderate 6-25 bpm Accelerations: 15X15 Decelerations: None Category: Category I Comments: points of loss of contact Pain Assessment Pain Scale: 4 Pain Presence: Intermittent Pain Type: Contraction Pain Location: Back Pain Goal: 6 Pain Relief Measures: Comfort Measures Datetime: 07/27/2018 04:00 Stage of : Labor Temperature Route: Oral Labor Evaluation Frequency: 2-4 Monitor Mode: External Duration (sec)2399: 50-70 Quality: Moderate Pattern: Normal: <= 5 Contractions in 10 Minutes Resting Tone [place]: Relaxed Heart Rate FHR Baseline Rate: 135 Monitor Mode: External US FHR Baseline Changes: No Baseline Change Variability: Moderate 6-25 bpm Accelerations: 15X15 Decelerations: None Category: Category I Pain Assessment Pain Scale: 4 Pain Presence: Intermittent Pain Type: Contraction Pain Location: Back Pain Goal: 6 Pain Relief Measures: Comfort Measures Datetime: 07/27/2018 03:00 Stage of : Labor Labor Evaluation Frequency: 2-5 Monitor Mode: External Duration (sec)2399: 50-80 Quality: Moderate Pattern: Normal: <= 5 Contractions in 10 Minutes Resting Tone [place]: Relaxed Heart Rate FHR Baseline Rate: 135 Monitor Mode: External US FHR Baseline Changes: No Baseline Change Variability: Moderate 6-25 bpm Accelerations: 15X15 Decelerations: None Category: Category I Comments: points of loss of contact Pain Assessment Pain Scale: 4 Pain Presence: Intermittent Pain Type: Contraction Pain Location: Back Pain Goal: 6 Pain Relief Measures: Comfort Measures Datetime: 07/27/2018 02:00 Stage of : Labor Labor Evaluation Frequency: 2-5 Monitor Mode: External Duration (sec)2399: 40-70 Quality: Moderate Pattern: Normal: <= 5 Contractions in 10 Minutes Resting Tone [place]: Relaxed Heart Rate FHR Baseline Rate: 125 Monitor Mode: External US FHR Baseline Changes: No Baseline Change Variability: Moderate 6-25 bpm Accelerations: 15X15 Decelerations: None Category: Category I Pain Assessment Pain Scale: 4 Pain Presence: Intermittent Pain Type: Contraction Pain Location: Back Pain Goal: 6 Pain Relief Measures: Comfort Measures Datetime: 07/27/2018 01:00 Stage of : Labor Labor Evaluation Frequency: 1-4 Monitor Mode: External Duration (sec)2399: 40-70 Quality: Moderate Pattern: Normal: <= 5 Contractions in 10 Minutes Resting Tone [place]: Relaxed Heart Rate FHR Baseline Rate: 130 Monitor Mode: External US FHR Baseline Changes: No Baseline Change Variability: Moderate 6-25 bpm Accelerations: 15X15 Decelerations: None Category: Category II Comments: points of loss of contact, moderate variability with a period of minimal variability Pain Assessment Pain Scale: 8 Pain Presence: Intermittent Pain Type: Contraction Pain Location: Back Pain Goal: 6 Pain Relief Measures: Comfort Measures Datetime: 07/27/2018 00:00 Stage of : Labor Labor Evaluation Frequency: 1.5-3 Monitor Mode: External Duration (sec)2399: 40-70 Quality: Moderate Pattern: Normal: <= 5 Contractions in 10 Minutes Resting Tone [place]: Relaxed Heart Rate FHR Baseline Rate: 140 Monitor Mode: External US FHR Baseline Changes: No Baseline Change Variability: Moderate 6-25 bpm Accelerations: 15X15 Decelerations: None Category: Category I Pain Assessment Pain Scale: 8 Pain Presence: Intermittent Pain Type: Contraction Pain Location: Back Pain Goal: 6 Pain Relief Measures: Comfort Measures Datetime: 07/26/2018 23:37 Stage of : Labor Assessment Type: Admission Assessment Vaginal Bleeding: None Maternal Assessment Level of Consciousness: Fully Conscious DTR's/Clonus: DTRs 2+; No Clonus Headache: Denies Blurred Vision: No Respiratory Effort: Unlabored; Regular Rhythm; Equal Expansion Breath Sounds, Left: Clear and Equal Breath Sounds, Right: Clear and Equal Nausea/Vomiting: Present RUQ Epigastric Pain: Denies Lower Extremities Edema: Bilateral Lower Extremities Degree: 1+ Upper Extremities Edema: None Degree: None Facial Edema: None Fall Risk Assessment History of Falling: (0) No Secondary Diagnosis: (0) No Ambulatory Aid: (0) Bedrest/Nurse Assist IV Therapy: (20) Yes Gait: (0) Normal/Bedrest/Immobile Mental Status: (0) Oriented to Own Ability Fall Score: 20 Fall Risk Score Definition: No Risk: No action required Pain Assessment Pain Scale: 8 Pain Presence: Intermittent Pain Type: Contraction Pain Location: Back Pain Goal: 6 Membrane Status: Intact Datetime: 07/26/2018 20:41 Time of Arrival: 07/26/2018 23:20 EGA: 35.2 Arrived By: Wheelchair Arrived From: Home Membranes Ruptured Date/Time: 08/11/2018 21:24 Membranes Rupture Method: Spontaneous Amniotic Fluid Color: Clear Amniotic Fluid Amount: Moderate Amniotic Fluid Odor: None Presentation 'A': Cephalic Datetime: 07/26/2018 19:25 Fall Score: 0 Fall Risk Score Definition: No Risk: No action required
--- NOTE | 2018-08-11 23:36 | HP ---
Date/Time of Note Date/Time of Note DATE: 08/11/18 TIME: 23:30 OB - History Hx of Present Free Text/Dictation 23 years old with single intrauterine at 37 weeks and 3 days with a ABRAHAN of 08/29/2018 presented to triage with complaint of uterine contractions and urge to push. She states good movement. She denies nausea, vomiting, shortness of breath, chest pain, headache, visual changes, vaginal bleeding or LOF. Chief Complaint: Uterine contractions Estimated Due Date: Aug 29, 2018 : 3 Para: 1 Spontaneous : 1 Therapeutic : 0 Care: Good Care Ultrasounds: Normal mid trimester US Obstetrical Complications: None Medical Complications: None Past Family/Social History * Past Medical, Surgical, Family and Obstetric Histories reviewed from chart. Blood Type: B+ Rubella: immune RPR/VDRL: Negative GBS Status: Negative HBsAG: Negative OB Admission Exam Vital Signs Vital Signs Blood pressure 126/74, pulse rate 72/minutes, respiratory rate 16/minutes, temperature 98.6 Physical Exam HEENT: WNL Heart: Rhythm Normal Lungs: Clear Abdomen: WNL Extremities: Normal Cervical Dilatation: 10cm Effacement: 100% Station: +1 Membranes: Intact Heart Rate: 130's Accelerations: Accelerations Present Decelerations: No Decelerations Varibility: Moderate Contractions on Admission: < 5 Minutes Apart Intensity: Firm Last 72 hours Lab Results CBC & BMP 08/11/18 22:13 OB Assessment/Plan Other plan: 23 years old with single intrauterine at 37 weeks and 3 days with complete cervical dilation. FHR: No sign of metabolic acidosis- Category I. The membrane rupture and she delivered soon after arrival. Please see the vaginal delivery summary for detail. Blood collected for CBC, blood type and screen after delivery. Please see the orders - B+/Rubella: Immune - GBS: Negative KARLO COLON Aug 11, 2018 23:36
--- NOTE | 2018-08-11 23:46 | LDN ---
Date/Time of Note Date/Time of Note DATE: 08/11/18 TIME: 23:38 Delivery Summary 23 years old with single intrauterine at 37 weeks and 3 days and history of delivery at 32 weeks delivered a viable female over third-degree vaginal laceration. Nose and mouth suctioned. Rest of body delivered. Cord clamped and cut after stopping pulsation. Baby given to the nurse. Placenta delivered spontaneously and intact with three-vessel cord. Laceration repaired with 0 and 2-O and 3-0 Vicryl. Time of delivery 21:24 Weight 3345 g - 7 pound 6 ounces 8 at 1 minutes and 9 at 5 minutes EBL 200 mL Weeks of Gestation 37 weeks and 3 days Placenta Delivered: Spontaneously Meconium: none Episiotomy: No Estimated blood loss: 200 Sponge & Needle done & correct: Yes All needle counts correct: Yes Any foreign bodies felt in the: No Delivery Information Sex Infant Sex: female Apgars 1 Minute: 8 5 Minute: 9 10 Minute: 10 Suctioning Nose & mouth suctioned at aditi: Yes Umbilical Cord Umbilical cord with: 3 Vessels Cord Blood was obtained: Yes Mother & Baby Disposition Disposition Mom & Baby to Maternity; Good: Yes KARLO COLON Aug 11, 2018 23:46
[2018-08-12] VITALS: BP 129/86; PULSE 60; RESP 18
[2018-08-12] MEDS ORDERED: DEXTROSE 5%-LR 1,000 ML IV SCH ×2 (00:03)
[2018-08-12] MEDS: LACTATED RINGER'S 1,000 ML IV* SCH ×3 (00:03→16:03)
[2018-08-12] MEDS ORDERED: LACTATED RINGER'S 1,000 ML IV* SCH (00:03)
[2018-08-12] MEDS ORDERED: BENZOCAINE 20% 56 ML SPRAY TOP PRN ×2 (00:30)
[2018-08-12] MEDS ORDERED: OXYTOCIN 30 UNITS/LR 500 ML IV PRN ×2 (00:30)
[2018-08-12] MEDS ORDERED: DIBUCAINE 1% 30 GM OINT TOP PRN ×2 (00:30)
[2018-08-12] MEDS ORDERED: ACETAMINOPHEN 325 MG TAB PO PRN ×2 (00:30)
[2018-08-12] MEDS ORDERED: DIPHENHYDRAMINE 50 MG INJ IV PRN ×2 (00:30)
[2018-08-12] MEDS ORDERED: SENNA/DOCUSATE NA (8.6MG/50MG) TAB PO PRN ×2 (00:30)
[2018-08-12] MEDS ORDERED: ZOLPIDEM 5 MG TAB PO PRN ×2 (00:30)
[2018-08-12] MEDS ORDERED: OXYCODONE/ASPIRIN (4.88/325) TAB PO PRN ×2 (00:30)
[2018-08-12] MEDS ORDERED: METHYLERGONOVINE 0.2 MG INJ IM PRN ×2 (00:30)
[2018-08-12] MEDS ORDERED: MISOPROSTOL 200 MCG TAB PR PRN ×2 (00:30)
[2018-08-12] MEDS ORDERED: CARBOPROST 250 MCG INJ IM PRN ×2 (00:30)
[2018-08-12] MEDS ORDERED: ONDANSETRON 4 MG INJ IV PRN ×2 (00:30)
[2018-08-12] MEDS ORDERED: LANOLIN HPA 1 PKT TOP PRN ×2 (00:30)
[2018-08-12] MEDS ORDERED: WITCH HAZEL/GLYCERIN PAD PR PRN ×2 (00:30)
[2018-08-12 01:30] VITALS: BP 130/79; PULSE 67; RESP 18
[2018-08-12] MEDS: IBUPROFEN 600 MG TAB PO SCH ×3 (05:45→17:47)
[2018-08-12] MEDS ORDERED: IBUPROFEN 600 MG TAB PO SCH (06:00)
[2018-08-12 08:00] VITALS: BP 97/52; PULSE 64; RESP 18
--- NOTE | 2018-08-12 08:41 | PN ---
Date/Time of Note Date/Time of Note DATE: 08/12/18 TIME: 08:40 OB Subjective Subjective Subjective PPD# 1 Patient is doing well. She denies nausea, vomiting, shortness of breath, chest pain, headache. She has been ambulating without difficulty, tolerating regular diet. Pain is well controlled on current medications OB Objective Objective Objective Vital Signs Date Temp Pulse Resp B/P (MAP) Pulse Ox O2 O2 Flow FiO2 Time Delivery Rate 08/12/18 98.6 67 18 130/79 Room Air 01:30 (96) General: AAO X 3, comfortable, NAD, appropriate mood and affect. ABD: +BS. Soft, non-tender. Uterus 2 cm below umbilicus Flank: No CVA tenderness (B/L) LE: Mild edema. No clubbing, cyanosis, thigh or calf tenderness (B/L). Homans 'sign is negative Laboratory Tests Test 08/11/18 22:13 08/12/18 07:21 White Blood Count 13.8 10^3/ul 13.5 10^3/ul Red Blood Count 4.07 10^6/ul 3.50 10^6/ul Hemoglobin 12.5 g/dl 10.7 g/dl Hematocrit 37.2 % 31.7 % Mean Corpuscular Volume 91.4 fl 90.6 fl Mean Corpuscular Hemoglobin 30.7 pg 30.6 pg Mean Corpuscular Hemoglobin Concent 33.6 g/dl 33.8 g/dl Red Cell Distribution Width 13.2 % 12.9 % Platelet Count 206 10^3/UL 168 10^3/UL Mean Platelet Volume 13.6 fl 12.8 fl Immature Granulocytes % 0.400 % 0.700 % Neutrophils % 57.1 % 74.2 % Lymphocytes % 31.8 % 16.1 % Monocytes % 10.0 % 8.3 % Eosinophils % 0.4 % 0.4 % Basophils % 0.3 % 0.3 % Nucleated Red Blood Cells % 0.0 /100WBC 0.0 /100WBC Immature Granulocytes # 0.060 10^3/ul 0.100 10^3/ul Neutrophils # 7.9 10^3/ul 10.0 10^3/ul Lymphocytes # 4.4 10^3/ul 2.2 10^3/ul Monocytes # 1.4 10^3/ul 1.1 10^3/ul Eosinophils # 0.1 10^3/ul 0.1 10^3/ul Basophils # 0.0 10^3/ul 0.0 10^3/ul Nucleated Red Blood Cells # 0.0 10^3/ul 0.0 10^3/ul Prothrombin Time 11.8 Sec Prothrombin Time Ratio 0.9 INR International Normalized Ratio 0.86 Activated Partial Thromboplast Time 27.1 Sec Hepatitis B Surface Antigen NEGATIVE OB Assessment/Plan Other plan: 23-year-old s/p normal vaginal delivery at 37 weeks and 3 days. PPD#1 - AF, VSS - Baby is doing well, at bed side. She is bonding well - Contraception methods with R/B/A/FR discussed - Continue care - Discharge home tomorrow - Rx and instruction given - Follow up in 2 and 6 weeks at clinic KARLO COLON Aug 12, 2018 08:41
--- NOTE | 2018-08-12 08:42 | DS ---
Date/Time of Note Date/Time of Note DATE: 08/12/18 TIME: 08:41 Obstetrical Discharge Record Final Diagnosis Final Diagnosis: Term delivered Other Final Diagnosis 23-year-old s/p normal vaginal delivery at 37 weeks and 3 days. PPD#1. Her course was unremarkable. She is ambulating and tolerating regular diet. She is voiding without difficulty. Pain is controlled on current medication. - AF, VSS - Baby is doing well, at bed side. She is bonding well - Contraception methods with R/B/A/FR discussed - Continue care - Discharge home tomorrow - Rx and instruction given - Follow up in 2 and 6 weeks at clinic Vaginal Delivery Obstetrical Delivery: Spontaneous Condition on Discharge Physical Assessment Last Vitals: VS - Last 72 Hours, by Label Date Temp Pulse Resp B/P (MAP) Pulse Ox O2 O2 Flow FiO2 Time Delivery Rate 08/12/18 98.6 67 18 130/79 Room Air 01:30 (96) 08/12/18 99.0 60 18 129/86 Room Air 00:00 (100) 08/11/18 98.9 63 18 130/80 Room Air 23:20 (97) Voiding: Yes Bowel Movement: Yes Breast: Soft, non-tender Fundus: Firm Calf Tenderness: No Patient Condition: Stable KARLO COLON Aug 12, 2018 08:42
[2018-08-12 16:06] VITALS: BP 107/58; PULSE 69; RESP 18
[2018-08-12 20:05] VITALS: BP 108/63; PULSE 79; RESP 18
[2018-08-13 04:00] VITALS: BP 108/54; PULSE 62; RESP 18
[2018-08-13] MEDS: IBUPROFEN 600 MG TAB PO SCH ×3 (05:59→12:30)
[2018-08-13 08:00] VITALS: BP 102/54; PULSE 73; RESP 18
[2018-08-13] MEDS ORDERED: DIPHTH/TET/ACEL PERTUSS (ADULT) 0.5 ML VIAL IM* ONE (09:00)
[2018-08-13] MEDS ORDERED: MEASLES,MUMPS,RUBELLA VACCINE INJ SC* ONE (09:00)
--- NOTE | 2018-08-13 12:07 | QN ---
Documentation Comment 23-year-old s/p normal vaginal delivery at 37 weeks and 3 days. PPD#2. Her course was unremarkable. She is ambulating and tolerating regular diet. She is voiding without difficulty. Discharge home. Rx and instruction given. Follow up in 2 and 6 weeks at clinic KARLO COLON Aug 13, 2018 12:07
== END 2018-08-13 14:42 | disposition home or self-care (01) | DRG 807 ==
LOC: OBT 20:48 → L-D 20:49 → OBT 21:18 → L-D 21:18 → PP1 23:32
PROVIDERS: ADMIT Obstetrics & Gynecology; ATTEND Obstetrics & Gynecology
PROC: 10E0XZZ Delivery of Products of Conception, External Approach (ICD-10-PCS; principal; 2018-08-11)
PROC: 0UQGXZZ Repair Vagina, External Approach (ICD-10-PCS; 2018-08-11)
PROC: 3E033VJ Introduction of Other Hormone into Peripheral Vein, Percutaneous Approach (ICD-10-PCS; 2018-08-11)
DX: O71.4 Obstetric high vaginal laceration alone (principal); Z37.0 Single live birth; Z3A.37 37 weeks gestation of pregnancy
CPT/HCPCS: 85025; 85610; 85730; 86592; 86850; 86900; 86901; 87340; G0463; J2590; J7120; J7121